=== PATIENT | male | born 1990 | race African-American/Black ===

== ENCOUNTER 2019-06-24 18:14 | Emergency (ER) | payer SELFPAY ==
[2019-06-24 18:27] VITALS: BP 126/74; PULSE 75; TEMP 98.5; BMI 25.0
[2019-06-24] MEDS ORDERED: ALBUTEROL SO4 2.5/IPRATROPIUM 0.5 INH SOL 3 ML VIAL.NEB. NEB ONE ×2 (19:14→19:29)
--- NOTE | 2019-06-24 19:21 | PDOC ---
History of Present Illness - General Chief Complaint: Cold Symptoms Stated Complaint: CHEST TIGHTNESS/COUGHING Time Seen by Provider: 06/24/19 18:19 History Source: Patient Exam Limitations: No Limitations - History of Present Illness Initial Comments: 06/24/19 19:16 29 year old male with no significant medical or surgical history presents with chest tightness, pain in posterior rib, shortness of breath, non productive coughing and pain with forceful coughing. Smoker 1pack/day. Denies fever, chills, or cold symptoms. Is this a multiple visit Asthma Patient?: No Timing/Duration: reports: week (1-3 weeks ) Severity: reports: moderate Possible Cause: Yes: no prior episodes Modifying Factors: improves with: coughing Associated Symptoms: reports: cough, muscle aches, shortness of breath Past History - Travel Traveled outside of the country in the last 30 days: No Close contact w/someone who was outside of country & ill: No - Past Medical History Allergies/Adverse Reactions: Allergies Allergy/AdvReac Type Severity Reaction Status Date / Time No Known Allergies Allergy Verified 08/15/15 18:24 Home Medications: Ambulatory Orders Prednisone [Deltasone] 40 mg PO DAILY #8 tablet 08/15/15 Albuterol Sulfate Inhaler - [Ventolin HFA Inhaler -] 2 inh PO Q6H #1 inh Azithromycin [Zithromax 250mg Tablets -] 250 mg PO UTDICT #6 tab 06/24/19 Ibuprofen [Ibu] 600 mg PO TID #20 tablet 06/24/19 COPD: No CHF: No DVT: No Dementia: No - Immunization History Immunization Up to Date: Yes - Psycho Social/Smoking Cessation Hx Smoking History: Current every day smoker Number of Cigarettes Smoked Daily: 10 Information on smoking cessation initiated: No Hx Alcohol Use: No Drug/Substance Use Hx: No Respiratory Specific PMHX - Complaint Specific PMHX Hx Asthma: No Hx Bronchitis: No Hx Pneumonia: No Hx TB (Tuberculosis): No Hx Angina: No Review of Systems - Review of Systems Able to Perform ROS?: Yes Is the patient limited Serbian proficient: No Constitutional: Yes: Malaise. No: Chills, Diaphoresis, Fever, Weakness HEENTM: No: Nose Congestion, Throat Pain Respiratory: Yes: Cough, Shortness of Breath Cardiac (ROS): Yes: Chest Pain. No: Irregular Heart Rate, Lightheadedness, Palpitations ABD/GI: No: Blood Streaked Bowels, Constipated, Diarrhea, Poor Appetite, Vomiting : No: Dysuria, Hematuria Musculoskeletal: No: Back Pain, Gout, Joint Pain Neurological: No: Headache, Numbness, Paresthesia Psychiatric: No: Stressors Endocrine: No: Increased Urine Hematologic/Lymphatic: No: Blood Clots, Easy Bleeding *Physical Exam - Vital Signs Last Vital Signs Temp Pulse Resp BP Pulse Ox 98.5 F 75 17 126/74 97 06/24/19 18:24 06/24/19 18:24 06/24/19 18:24 06/24/19 18:24 06/24/19 18:24 - Physical Exam General Appearance: Yes: Nourished, Appropriately Dressed HEENT: positive: Pharynx Normal. negative: Pharyngeal Erythema, Tonsillar Erythema, Nasal Congestion, Rhinorrhea Neck: positive: Supple. negative: Lymphadenopathy (R), Lymphadenopathy (L) Respiratory/Chest: positive: Lungs Clear Cardiovascular: positive: Regular Rhythm, Regular Rate Extremity: positive: Normal Capillary Refill, Normal Inspection Integumentary: positive: Normal Color Neurologic: positive: dog breeder II-XII NML intact, Fully Oriented, Alert ED Treatment Course - RADIOLOGY Radiology Studies Ordered: Category Date Time Status CHEST PA & LAT [RAD] Stat Radiology 06/24/19 19:14 Ordered Medical Decision Making - Medical Decision Making 06/24/19 19:25 29 year old male with no significant medical or surgical history presents with chest tightness, pain in posterior rib, shortness of breath, non productive coughing and pain with forceful coughing. Smoker 1pack/day. Denies fever, chills, or cold symptoms. #chest tightness -duoneb -chest xray -ekg 06/24/19 19:38 -chest xray with no pathology -ekg sinus jo -rx: zpack Discharge - Discharge Information Problems reviewed: Yes Clinical Impression/Diagnosis: Chest tightness Condition: Good Disposition: HOME - Admission No - Additional Discharge Information Prescriptions: Albuterol Sulfate Inhaler - [Ventolin HFA Inhaler -] 2 inh PO Q6H #1 inh Azithromycin [Zithromax 250mg Tablets -] 250 mg PO UTDICT #6 tab Ibuprofen [Ibu] 600 mg PO TID #20 tablet - Follow up/Referral - Patient Discharge Instructions Patient Printed Discharge Instructions: Smoking Cessation Additional Instructions: -Reduce smoking until you stop -Drink plenty fluids -Take medications as prescribed - Post Discharge Activity Work/Back to School Note: Back to Work
[2019-06-24] MEDS ORDERED: IBUPROFEN 600 MG TABLET (FP) PO ONE ×2 (19:22→19:29)
--- NOTE | 2019-06-25 11:26 | EKG ---
Test Reason : Blood Pressure : / mmHG Vent. Rate : 055 BPM Atrial Rate : 055 BPM P-R Int : 170 ms QRS Dur : 108 ms QT Int : 380 ms P-R-T Axes : 079 077 048 degrees QTc Int : 363 ms SINUS BRADYCARDIA POSSIBLE LEFT ATRIAL ENLARGEMENT LEFT VENTRICULAR HYPERTROPHY ABNORMAL ECG NO PREVIOUS ECGS AVAILABLE Confirmed by Buddy Rivera MD ([id number]) on 06/25/2019 11:26:14 AM Referred By: Confirmed By:Buddy Rivera MD
== END 2019-06-24 19:58 | disposition home or self-care (01) ==
LOC: JERFT 18:14
PROC: 3E0F7GC Introduction of Other Therapeutic Substance into Respiratory Tract, Via Natural or Artificial Opening (ICD-10-PCS; principal; 2019-06-24)
DX: R07.89 Other chest pain (principal); F17.210 Nicotine dependence, cigarettes, uncomplicated
CPT/HCPCS: 71046-TC-FY; 93005; 93010; 99281-25